=== PATIENT | female | born 2000 | race Asian ===

== ENCOUNTER 2022-06-14 14:59 | Emergency (ER) | payer OTHER, SELFPAY ==
[2022-06-14 15:05] VITALS: BP 118/59; PULSE 70; RESP 15; TEMP 36.6; O2SAT 100; BMI 16.8
[2022-06-14] MEDS: ONDANSETRON 4 MG/2 ML INJ IV (15:23)
[2022-06-14 15:28] LABS: Add Manual Diff / Slide Review NO; Basophils Absolute Auto 0 /uL (0-100); Basophils Percent Auto 0.6 % (0-2); Eosinophils Absolute Auto 200 /uL (0-450); Eosinophils Percent Auto 2.7 % (2-4); Hematocrit 41.4 % (36-46); Hemoglobin 13.7 g/dL (12.0-16.0); Lymphocytes Absolute Auto 2100 /uL (1100-4500); Lymphocytes Percent Auto 33.8 % (25-40); Mean Corpuscular Hemoglobin 29.6 PG (26-34); Mean Corpuscular Volume 89.9 fL (80-100); Monocytes Absolute Auto 400 /uL (0-900); Monocytes Percent Auto 6.3 % (3-14); Neutrophils Absolute Auto 3600 /uL (1500-7000); Neutrophils Percent Auto 56.6 % (50-75); Platelet Count 278 X10^3/uL (150-400); Red Blood Cell Count 4.61 X10^6/uL (4.0-5.2); White Blood Cell Count 6.3 X10^3/uL (4.5-11.0)
--- NOTE | 2022-06-14 15:29 | ED.ABDPAIN ---
HPI - Abdominal Pain <NEREYDA Barrow - Last Filed: 06/14/22 16:20> General Chief Complaint: Abdominal Pain Stated Complaint: Vomiting bile, abd pain Time Seen by Provider: 06/14/22 15:15 Source: patient Mode of arrival: Ambulatory History of Present Illness HPI narrative: This is a 21-year-old female who presents to the emergency department complaining of nausea and vomiting x1 today when she got to work. She endorses that she just started treatment for chlamydia yesterday, states that she is had a total of 3 doses. Denies urinary frequency or urgency, denies fever chills, denies any stool changes, states it has been approximately 2-3 days and she is had a bowel movement. Endorses periumbilical pain, states that her last menses was approximately 1 month ago. Denies chance of . States that she is on doxycycline. Related Data Previous Rx's Medication Instructions Recorded metronidazole 500 mg tablet 500 mg PO BID 7 days #14 tabs 06/14/22 ondansetron 4 mg disintegrating 4 mg PO Q8H PRN nausea and 06/14/22 tablet vomiting #10 tabs Allergies Allergy/AdvReac Type Severity Reaction Status Date / Time No Known Drug Allergies Allergy Verified 06/14/22 15:13 Review of Systems <NEREYDA Barrow - Last Filed: 06/14/22 16:20> Review of Systems ROS Unobtainable: All systems reviewed & are unremarkable except as noted in HPI and below Patient History <NEREYDA Barrow - Last Filed: 06/14/22 16:20> Social History Smoking Status: Unknown if ever smoked Smoking Status: Unknown if ever smoked alcohol intake frequency: holidays/special occasions only Substance Use Type: does not use Exam <NEREYDA Barrow - Last Filed: 06/14/22 16:20> Narrative Exam Narrative: Reviewed vitals signs and nursing notes. General: cooperative, in no acute distress, well groomed HEENT: symmetrical facial expressions, moist mucous membranes, neck is supple CV: regular rate and rhythm, warm extremities Respiratory: Without abnormal breath sounds, normal work of breathing, without tachypnea, hypoxia. GI: abdomen soft, nontender to palpation in all quadrants, nondistended, without masses, rebound tenderness or CVA tenderness bilaterally. MSK: moves all extremities, neurovascularly intact, no weakness, normal tone Skin: brisk capillary refill, without rash or wound Neuro: normal speech and cognition, A&O x3, ambulatory, clear speech Initial Vital Signs Initial Vital Signs: Vital Signs Temperature 97.8 F 06/14/22 15:05 Pulse Rate 70 06/14/22 15:05 Respiratory Rate 15 06/14/22 15:05 Blood Pressure 118/59 L 06/14/22 15:05 Pulse Oximetry 100 06/14/22 15:05 Oxygen Delivery Method Room Air 06/14/22 15:05 <Zaheer Faria DO - Last Filed: 06/14/22 16:37> Initial Vital Signs Initial Vital Signs: Vital Signs Temperature 97.8 F 06/14/22 15:05 Pulse Rate 70 06/14/22 15:05 Respiratory Rate 15 06/14/22 15:05 Blood Pressure 118/59 L 06/14/22 15:05 Pulse Oximetry 100 06/14/22 15:05 Oxygen Delivery Method Room Air 06/14/22 15:05 Course <NEREYDA Barrow - Last Filed: 06/14/22 16:20> Orders Ordered: ED Orders 06/14/22 15:15 Complete Blood Count AUTO DIFF Stat Comprehensive Metabolic Panel Stat HCG Quantitative /Beta subunit Stat Lipase Stat 06/14/22 15:25 Chlamydia Gonorrhea PCR -URINE Stat Urine Microscopic Stat Wet Prep Tric BV Lida Stat Ondansetron HCl (Ondansetron 4 Mg/2 Ml Inj) 4 mg IV NOW PRN PRN Reason: Nausea And Vomiting Last Admin: 06/14/22 15:23 Dose: 4 mg Documented By: ROBSON Discontinued Medications Ketorolac Tromethamine (Ketorolac 30 Mg/Ml Vial) 15 mg IV NOW ONE Stop: 06/14/22 16:00 Last Admin: 06/14/22 16:05 Dose: 15 mg Documented By: KAMRON Metronidazole (Metronidazole 500 Mg Tablet) 500 mg PO NOW ONE Stop: 06/14/22 16:00 Last Admin: 06/14/22 16:05 Dose: 500 mg Documented By: KAMRON Vital Signs Vital signs: Vital Signs - 8 hr 06/14/22 15:05 Temperature 97.8 F Pulse Rate 70 Respiratory Rate 15 Blood Pressure 118/59 L Pulse Oximetry 100 Oxygen Delivery Method Room Air <Zaheer Faria DO - Last Filed: 06/14/22 16:37> Orders Ordered: ED Orders 06/14/22 15:15 Complete Blood Count AUTO DIFF Stat Comprehensive Metabolic Panel Stat HCG Quantitative /Beta subunit Stat Lipase Stat 06/14/22 15:25 Chlamydia Gonorrhea PCR -URINE Stat Urine Microscopic Stat Wet Prep Tric BV L[place] Stat Ondansetron HCl (Ondansetron 4 Mg/2 Ml Inj) 4 mg IV NOW PRN PRN Reason: Nausea And Vomiting Last Admin: 06/14/22 15:23 Dose: 4 mg Documented By: ROBSON Discontinued Medications Ketorolac Tromethamine (Ketorolac 30 Mg/Ml Vial) 15 mg IV NOW ONE Stop: 06/14/22 16:00 Last Admin: 06/14/22 16:05 Dose: 15 mg Documented By: KAMRON Metronidazole (Metronidazole 500 Mg Tablet) 500 mg PO NOW ONE Stop: 06/14/22 16:00 Last Admin: 06/14/22 16:05 Dose: 500 mg Documented By: KAMRON Vital Signs Vital signs: Vital Signs - 8 hr 06/14/22 15:05 Temperature 97.8 F Pulse Rate 70 Respiratory Rate 15 Blood Pressure 118/59 L Pulse Oximetry 100 Oxygen Delivery Method Room Air MDM - Abdominal Pain <NEREYDA Barrow - Last Filed: 06/14/22 16:20> Lab Data 06/14/22 15:15 06/14/22 15:15 Labs: Lab Results 06/14/22 06/14/22 06/14/22 Range/Units 15:15 15:15 15:15 WBC 6.3 (4.5-11.0) X10^3/uL RBC 4.61 (4.0-5.2) X10^6/uL Hgb 13.7 (12.0-16.0) g/dL Hct 41.4 (36-46) % MCV 89.9 (80-100) fL MCH 29.6 (26-34) PG MCHC 33.0 (30-36) % RDW 14.0 (11.6-14.8) % Plt Count 278 (150-400) X10^3/uL Neut % (Auto) 56.6 (50-75) % Lymph % (Auto) 33.8 (25-40) % [place] % (Auto) 6.3 (3-14) % Eos % (Auto) 2.7 (2-4) % Baso % (Auto) 0.6 (0-2) % Neut # (Auto) 3600 (2067-1492) /uL Lymph # (Auto) 2100 (0966-6176) /uL [place] # (Auto) 400 (0-900) /uL Eos # (Auto) 200 (0-450) /uL Baso # (Auto) 0 (0-100) /uL Sodium 139 (137-145) mmol/L Potassium 3.9 (3.4-5.1) mmol/L Chloride 102 (98-107) mmol/L Carbon Dioxide 27 (22-32) mmol/L BUN 14 (7-17) mg/dL Creatinine 0.65 (0.52-1.04) mg/dL Estimated GFR > 60 (>60) mL/min BUN/Creatinine Ratio 21.5 (6-22) Glucose 76 (70-100) mg/dL Calcium 9.2 (8.4-10.2) mg/dL Total Bilirubin 0.6 (0.2-1.3) mg/dL AST 27 (14-36) IU/L ALT 14 (<35) IU/L Alkaline Phosphatase 46 (38-126) U/L Total Protein 8.5 H (6.3-8.2) g/dL Albumin 4.8 (3.5-5.0) g/dL Globulin 3.7 (1.7-4.1) g/dL Albumin/Globulin Ratio 1.3 (1.0-2.8) Lipase 185 (23-300) U/L HCG, Quant < 2.4 mIU/mL Urine RBC (0-5/HPF) Urine WBC (0-5/HPF) Urine Bacteria (None) Ur Culture Indicated? Micro UA Comment 06/14/22 Range/Units 15:25 WBC (4.5-11.0) X10^3/uL RBC (4.0-5.2) X10^6/uL Hgb (12.0-16.0) g/dL Hct (36-46) % MCV (80-100) fL MCH (26-34) PG MCHC (30-36) % RDW (11.6-14.8) % Plt Count (150-400) X10^3/uL Neut % (Auto) (50-75) % Lymph % (Auto) (25-40) % [place] % (Auto) (3-14) % Eos % (Auto) (2-4) % Baso % (Auto) (0-2) % Neut # (Auto) (5344-0902) /uL Lymph # (Auto) (2430-4652) /uL [place] # (Auto) (0-900) /uL Eos # (Auto) (0-450) /uL Baso # (Auto) (0-100) /uL Sodium (137-145) mmol/L Potassium (3.4-5.1) mmol/L Chloride (98-107) mmol/L Carbon Dioxide (22-32) mmol/L BUN (7-17) mg/dL Creatinine (0.52-1.04) mg/dL Estimated GFR (>60) mL/min BUN/Creatinine Ratio (6-22) Glucose (70-100) mg/dL Calcium (8.4-10.2) mg/dL Total Bilirubin (0.2-1.3) mg/dL AST (14-36) IU/L ALT (<35) IU/L Alkaline Phosphatase (38-126) U/L Total Protein (6.3-8.2) g/dL Albumin (3.5-5.0) g/dL Globulin (1.7-4.1) g/dL Albumin/Globulin Ratio (1.0-2.8) Lipase (23-300) U/L HCG, Quant mIU/mL Urine RBC None seen (0-5/HPF) Urine WBC None seen (0-5/HPF) Urine Bacteria None seen (None) Ur Culture Indicated? Cult not indicated Micro UA Comment Microscopic normal Point of care testing: Point of Care Testing Test Results Negative Urine Dip Bedside Urine Glucose Negative Bedside Urine Bilirubin - Negative Bedside Urine Ketone - Negative Urine Specific Mather 1.010 Bedside Urine Occult Blood - Negative Bedside Urine pH 6.0 Bedside Urine Protein - Negative Bedside Urine Urobilinogen - Negative Bedside Urine Nitrite - Negative Bedside Urine Leukocytes - Negative Esterase MDM Narrative Medical decision making narrative: Chief Complaint: Vomiting with nausea Independent historian: Patient Differential diagnoses include but are not limited to: Acute viral process, gastritis, gastric ulcer, biliary disease, gastroenteritis, GERD, bowel obstruction, perforated viscus, appendicitis, colitis, diverticulitis, IBD/IBS, intestinal ischemia, obstructive uropathy, acute cystitis, pyelonephritis, ovarian cyst, ectopic , ovarian mass/cyst, torsion, PID Doubt atypical ACS. No peritoneal signs on abdominal exam. Patient remains p.o. tolerant. Serial abdominal exam without increase in abdominal pain. Extensive conversation about ER return precautions and need for close follow-up. I have independently reviewed the patient's vital signs and nursing notes as well as prior records if available. Pertinent lab findings reviewed: Positive for WBCs, CBC and CMP are unremarkable, hCG is negative, UA is negative for infection, gonorrhea and chlamydia are still pending, patient's chlamydia test was positive yesterday. Patient received Zofran, Toradol, and Flagyl in the emergency department, states that she feels better. She is p.o. tolerant after Zofran and understands that she will start this new antibiotic, avoid alcohol with it, follow-up with her primary as needed, and rest for the next few days. The respiratory panel was never obtained and will be discontinued. Patient is nontoxic appearing, with stable vital signs, is p.o. tolerant at this time. Social considerations that may affect disposition: none Questions are addressed and there is agreement with the plan and for follow-up. Patient is appropriate for outpatient management. MIPS: This encounter doesn't have any diagnosis' associated with MIPS criteria. <Zaheer Faria, DO - Last Filed: 06/14/22 16:37> Lab Data Labs: Lab Results 06/14/22 06/14/22 06/14/22 Range/Units 15:15 15:15 15:15 WBC 6.3 (4.5-11.0) X10^3/uL RBC 4.61 (4.0-5.2) X10^6/uL Hgb 13.7 (12.0-16.0) g/dL Hct 41.4 (36-46) % MCV 89.9 (80-100) fL MCH 29.6 (26-34) PG MCHC 33.0 (30-36) % RDW 14.0 (11.6-14.8) % Plt Count 278 (150-400) X10^3/uL Neut % (Auto) 56.6 (50-75) % Lymph % (Auto) 33.8 (25-40) % [place] % (Auto) 6.3 (3-14) % Eos % (Auto) 2.7 (2-4) % Baso % (Auto) 0.6 (0-2) % Neut # (Auto) 3600 (4520-9068) /uL Lymph # (Auto) 2100 (9854-1960) /uL [place] # (Auto) 400 (0-900) /uL Eos # (Auto) 200 (0-450) /uL Baso # (Auto) 0 (0-100) /uL Sodium 139 (137-145) mmol/L Potassium 3.9 (3.4-5.1) mmol/L Chloride 102 (98-107) mmol/L Carbon Dioxide 27 (22-32) mmol/L BUN 14 (7-17) mg/dL Creatinine 0.65 (0.52-1.04) mg/dL Estimated GFR > 60 (>60) mL/min BUN/Creatinine Ratio 21.5 (6-22) Glucose 76 (70-100) mg/dL Calcium 9.2 (8.4-10.2) mg/dL Total Bilirubin 0.6 (0.2-1.3) mg/dL AST 27 (14-36) IU/L ALT 14 (<35) IU/L Alkaline Phosphatase 46 (38-126) U/L Total Protein 8.5 H (6.3-8.2) g/dL Albumin 4.8 (3.5-5.0) g/dL Globulin 3.7 (1.7-4.1) g/dL Albumin/Globulin Ratio 1.3 (1.0-2.8) Lipase 185 (23-300) U/L HCG, Quant < 2.4 mIU/mL Urine RBC (0-5/HPF) Urine WBC (0-5/HPF) Urine Bacteria (None) Ur Culture Indicated? Micro UA Comment 06/14/22 Range/Units 15:25 WBC (4.5-11.0) X10^3/uL RBC (4.0-5.2) X10^6/uL Hgb (12.0-16.0) g/dL Hct (36-46) % MCV (80-100) fL MCH (26-34) PG MCHC (30-36) % RDW (11.6-14.8) % Plt Count (150-400) X10^3/uL Neut % (Auto) (50-75) % Lymph % (Auto) (25-40) % [place] % (Auto) (3-14) % Eos % (Auto) (2-4) % Baso % (Auto) (0-2) % Neut # (Auto) (0106-4940) /uL Lymph # (Auto) (6844-4083) /uL [place] # (Auto) (0-900) /uL Eos # (Auto) (0-450) /uL Baso # (Auto) (0-100) /uL Sodium (137-145) mmol/L Potassium (3.4-5.1) mmol/L Chloride (98-107) mmol/L Carbon Dioxide (22-32) mmol/L BUN (7-17) mg/dL Creatinine (0.52-1.04) mg/dL Estimated GFR (>60) mL/min BUN/Creatinine Ratio (6-22) Glucose (70-100) mg/dL Calcium (8.4-10.2) mg/dL Total Bilirubin (0.2-1.3) mg/dL AST (14-36) IU/L ALT (<35) IU/L Alkaline Phosphatase (38-126) U/L Total Protein (6.3-8.2) g/dL Albumin (3.5-5.0) g/dL Globulin (1.7-4.1) g/dL Albumin/Globulin Ratio (1.0-2.8) Lipase (23-300) U/L HCG, Quant mIU/mL Urine RBC None seen (0-5/HPF) Urine WBC None seen (0-5/HPF) Urine Bacteria None seen (None) Ur Culture Indicated? Cult not indicated Micro UA Comment Microscopic normal Point of care testing: Point of Care Testing Test Results Negative Urine Dip Bedside Urine Glucose Negative Bedside Urine Bilirubin - Negative Bedside Urine Ketone - Negative Urine Specific [place] 1.010 Bedside Urine Occult Blood - Negative Bedside Urine pH 6.0 Bedside Urine Protein - Negative Bedside Urine Urobilinogen - Negative Bedside Urine Nitrite - Negative Bedside Urine Leukocytes - Negative Esterase Discharge Plan Departure Patient Disposition: Home Clinical Impression: Chlamydia infection Vomiting Qualifiers: Vomiting type: unspecified Nausea presence: with nausea Qualified Code(s): R11.2 - Nausea with vomiting, unspecified Instructions: DI for Pelvic Inflammatory Disease (PID), Nausea and Vomiting-Adult Activity Restrictions/Additional Instructions: *You have been diagnosed with vomiting, this is likely related to the chlamydia infection. I have given you another antibiotic to take for the next 7 days. Please take all medications with food and water, continue on your doxycycline and take Flagyl as well for the next 7 days. Use Zofran every 8 hours as needed for nausea. We will call you if the COVID test is positive, hopefully this helps in you start feeling better soon. Please avoid alcohol while taking this medication can cause worsening nausea and vomiting. Please drink plenty of fluids, will help you feel better, take Tylenol and or ibuprofen as needed for your symptoms. *What to do: *Please continue to take your regular medications as directed. [x ] New medication prescriptions sent to your pharmacy: [ [facility]] [ ] New medication written as a paper prescription [ ] No new medications given *Please follow up with your primary care provider in 2-3 days, call for an appointment. Let them know you were seen in the Emergency Department and that we asked that you be seen for follow-up. We will electronically transmit a record of today's note if your PCP is in our system *If you do not have a primary care provider please contact [phone] to establish care with one of the [facility] primary care providers. *Return to Emergency Department if you should have any new, worsening, or concerning symptoms, such as [fever greater than 101F, chills, worsening pain, persistent vomiting or other bothersome symptoms]. Prescriptions: New metronidazole 500 mg tablet 500 mg PO BID 7 Days Qty: 14 0RF ondansetron 4 mg tablet,disintegrating 4 mg PO Q8H PRN (Reason: nausea and vomiting) Qty: 10 0RF Referrals: Provider,Esequiel CHRISTIE [Primary Care Provider] - Stand Alone Forms: Patient Portal/API <Zaheer Faria, DO - Last Filed: 06/14/22 16:37> [facility] ED Attending Cosignature Attestation: Dr Faria Co-Sign Statement: I was available for consultation during this patient's emergency department visit. This chart is signed by myself for administrative purposes only. I did not have direct contact with this patient during this visit. They were seen independently by the APC.
[2022-06-14 15:36] LABS: Bacteria Urine None Seen; Culture Indicated Urine Cult Not Indicated; RBC Urine None Seen (0-5/HPF); Urine Comments Microscopic Normal; WBC Urine None Seen (0-5/HPF)
[2022-06-14 15:43] LABS: Alanine Aminotransferase 14 IU/L (<35); Albumin 4.8 g/dL (3.5-5.0); Albumin Globulin Ratio 1.3 (1.0-2.8); Alkaline Phosphatase 46 U/L (38-126); Aspartate Aminotransferase 27 IU/L (14-36); BUN Creatinine Ratio 21.5 (6-22); Bilirubin Total 0.6 mg/dL (0.2-1.3); Blood Urea Nitrogen 14 mg/dL (7-17); Calcium 9.2 mg/dL (8.4-10.2); Carbon Dioxide 27 mmol/L (22-32); Chloride 102 mmol/L (98-107); Estimated Glomerular Filt Rate > 60 mL/min (>60); Globulin 3.7 g/dL (1.7-4.1); Glucose 76 mg/dL (70-100); HEMOLYSIS < 15 (0-50); Lipase 185 U/L (23-300); Potassium 3.9 mmol/L (3.4-5.1); Sodium 139 mmol/L (137-145); Total Protein 8.5 g/dL (6.3-8.2)
[2022-06-14 15:59] LABS: HCG Quantitative /Beta subunit < 2.4 mIU/mL
[2022-06-14] MEDS: metroNIDAZOLE 500 MG TABLET PO (16:05)
[2022-06-14] MEDS: KETOROLAC 30 MG/ML VIAL 15 MG IV (16:05)
[2022-06-14 16:45] VITALS: BP 92/61; PULSE 61; O2SAT 100
[2022-06-14 16:59] LABS: Urine N gonorrhoeae NOT DETECTED
[2022-06-14 17:14] LABS: Urine Chlamydia NOT DETECTED
== END 2022-06-14 16:48 | disposition home or self-care (01) ==
PROVIDERS: Emergency Medicine; Emergency Provider Nurse Practitioner Critical Care Medicine
DX: R11.2 Nausea with vomiting, unspecified (principal); A74.9 Chlamydial infection, unspecified
CPT/HCPCS: 80053; 81003; 81015; 81025; 83690; 84702; 85025; 87210; 87491; 87591; 96374; 96375; 99284; J1885; J2405

== ENCOUNTER 2022-10-05 20:02 | Emergency (ER) | payer OTHER, SELFPAY ==
[2022-10-05 20:17] VITALS: BP 125/96; PULSE 104; RESP 16; TEMP 38; O2SAT 100; BMI 17.7
[2022-10-05 21:23] LABS: Add Manual Diff / Slide Review NO; Basophils Absolute Auto 100 /uL (0-100); Basophils Percent Auto 1.2 % (0-2); Eosinophils Absolute Auto 300 /uL (0-450); Hematocrit 39.3 % (36-46); Hemoglobin 13.3 g/dL (12.0-16.0); Lymphocytes Absolute Auto 2300 /uL (1100-4500); Lymphocytes Percent Auto 35.5 % (25-40); Mean Corpuscular HGB Conc 33.9 % (30-36); Mean Corpuscular Hemoglobin 30.6 PG (26-34); Mean Corpuscular Volume 90.5 fL (80-100); Monocytes Absolute Auto 600 /uL (0-900); Monocytes Percent Auto 9.3 % (3-14); Neutrophils Absolute Auto 3100 /uL (1500-7000); Platelet Count 299 X10^3/uL (150-400); Red Blood Cell Count 4.35 X10^6/uL (4.0-5.2); Red Cell Distribution Width 13.5 % (11.6-14.8); White Blood Cell Count 6.4 X10^3/uL (4.5-11.0)
[2022-10-05 21:36] LABS: Alanine Aminotransferase 16 IU/L (<35); Albumin 4.6 g/dL (3.5-5.0); Albumin Globulin Ratio 1.3 (1.0-2.8); Alkaline Phosphatase 41 U/L (38-126); Aspartate Aminotransferase 25 IU/L (14-36); BUN Creatinine Ratio 16.7 (6-22); Bilirubin Total 0.5 mg/dL (0.2-1.3); Blood Urea Nitrogen 12 mg/dL (7-17); Carbon Dioxide 28 mmol/L (22-32); Chloride 102 mmol/L (98-107); Estimated Glomerular Filt Rate > 60 mL/min (>60); Globulin 3.5 g/dL (1.7-4.1); Glucose 79 mg/dL (70-100); HEMOLYSIS < 15 (0-50); Lipase 184 U/L (23-300); Potassium 3.4 mmol/L (3.4-5.1); Sodium 137 mmol/L (137-145); Total Protein 8.1 g/dL (6.3-8.2)
[2022-10-05 21:49] VITALS: BP 128/90; PULSE 86; RESP 18; TEMP 37.4; O2SAT 98
--- NOTE | 2022-10-05 23:03 | DI.CT.S_ITS ---
PROCEDURE: CT KIDNEY URETER BLADDER (KUB) INDICATIONS: Hematuria/abdominal pain TECHNIQUE: Axial sections were acquired from the lung bases to the pubic symphysis. Coronal and sagittal reformats were performed. For radiation dose reduction, the following was used: automated exposure control, adjustment of mA and/or kV according to patient size. COMPARISON: None. FINDINGS: Image quality: Excellent. Lung bases: Unremarkable. Heart: No significant findings. URINARY: Right Kidney: No stones or hydronephrosis. Right Ureter: No hydroureter. Left Kidney: No stones or hydronephrosis. Left Ureter: No hydroureter. Bladder: Normal wall thickness. No stones. ABDOMEN: Liver: Unremarkable. Gallbladder: Unremarkable. Biliary ducts: Unremarkable. Pancreas: Unremarkable. Spleen: Unremarkable. Adrenal Glands: Unremarkable. Stomach and Bowel: Stomach, small bowel loops, and colon are unremarkable. Peritoneum: No abnormal intraperitoneal fluid. No free air. Ventral Wall: No hernia. Abdominal Nodes: No enlarged retroperitoneal or mesenteric lymph nodes. Vessels: Aorta and inferior vena cava are normal in size. PELVIS: Pelvic Organs: Unremarkable. Pelvic Nodes: Unremarkable. Miscellaneous: No inguinal hernias are seen. Bones: Unremarkable. IMPRESSION: No hydronephrosis or nephrolithiasis is found. Etiology current reported hematuria and abdominal pain is not identified. Dictated by: Osmin Nunez M.D. on 10/05/2022 at 23:46 Approved by: Osmin Nunez M.D. on 10/05/2022 at 23:48
--- NOTE | 2022-10-05 23:06 | ED_ITS ---
HPI - Female Genitourinary General Chief complaint: Urogenital-Female Stated complaint: ABD PAIN/BLOOD IN URINE Time Seen by Provider: 10/05/22 22:01 Source: patient Mode of arrival: Ambulatory History of Present Illness HPI Narrative: Patient here for complaints 1 week of off and on suprapubic pain with hematuria. This started 1 week ago with hematuria and has had off and on suprapubic pain. No flank pain. No increased urination. No dysuria or frequency. No fever chills. Patient states has history of UTI in the past but does not feel the same. Denies any vaginal bleeding. Patient denies any prior history of kidney stones. Denies any pain at this time. No nausea or vomiting. Related Data Previous Rx's Medication Instructions Recorded ondansetron 4 mg disintegrating 4 mg PO Q8H PRN nausea and 06/14/22 tablet vomiting #10 tabs Allergies Allergy/AdvReac Type Severity Reaction Status Date / Time No Known Drug Allergies Allergy Verified 06/14/22 15:13 Review of Systems Review of Systems Narrative: GENERAL: negative chills, fatigue, malaise, fever, sweats. HEENT: negative sinus pain, ear pain, sore throat RESPIRATORY: negative dyspnea, cough CARDIOVASCULAR: negative chest pain, palpitations GASTROINTESTINAL: negative nausea, vomiting, positive abdominal pain : negative dysuria, frequency, positive hematuria MUSCULOSKELETAL: negative muscle or bony pain SKIN: negative rash, skin lesions NEUROLOGIC: negative weakness, numbness ROS Unobtainable: All systems reviewed & are unremarkable except as noted in HPI and below Patient History alcohol intake frequency: holidays/special occasions only Substance Use Type: does not use Exam Narrative Exam Narrative: GENERAL: in no distress, not toxic not dyspneic HEAD: Normocephalic. EYES: Pupils equal round ENT: Mucous membranes moist. NECK: Trachea midline. CARDIOVASCULAR: Regular rate and rhythm without murmurs RESPIRATORY: Clear to auscultation. Breath sounds equal bilaterally. No wheezes, rales, or rhonchi. GASTROINTESTINAL: Abdomen soft, non-tender abdomen soft flat nontender no suprapubic tenderness. No McBurney point tenderness. No pain out of proportion to exam. Bowel sounds are present. No CVA tenderness EXTREMITIES: No gross deformities. BACK: No flank tenderness. NEURO: AOx4. SKIN: Warm and dry PSYCH: Not anxious, is cooperative Initial Vital Signs Initial Vital Signs: Vital Signs Temperature 100.4 F H 10/05/22 20:17 Pulse Rate 104 H 10/05/22 20:17 Respiratory Rate 16 10/05/22 20:17 Blood Pressure 125/96 H 10/05/22 20:17 Pulse Oximetry 100 10/05/22 20:17 Oxygen Delivery Method Room Air 10/05/22 20:17 Course Orders Ordered: ED Orders 10/05/22 21:10 Complete Blood Count AUTO DIFF Stat Comprehensive Metabolic Panel Stat Lipase Stat 10/05/22 23:03 CT kidney ureter bladder (KUB) Stat Discontinued Medications Ondansetron HCl (Ondansetron 4 Mg Odt) 4 mg PO NOW PRN PRN Reason: Nausea And Vomiting Ondansetron HCl (Ondansetron 4 Mg/2 Ml Inj) 4 mg IV NOW PRN PRN Reason: Nausea And Vomiting Vital Signs Vital signs: Vital Signs - 8 hr 10/05/22 21:49 10/06/22 00:03 Temperature 99.3 F Pulse Rate 86 66 Respiratory Rate 18 16 Blood Pressure 128/90 102/72 Pulse Oximetry 98 98 Oxygen Delivery Method Room Air Room Air MDM - Female Genitourinary Lab Data 10/05/22 21:10 10/05/22 21:10 Labs: Lab Results 10/05/22 10/05/22 Range/Units 21:10 21:10 WBC 6.4 (4.5-11.0) X10^3/uL RBC 4.35 (4.0-5.2) X10^6/uL Hgb 13.3 (12.0-16.0) g/dL Hct 39.3 (36-46) % MCV 90.5 (80-100) fL MCH 30.6 (26-34) PG MCHC 33.9 (30-36) % RDW 13.5 (11.6-14.8) % Plt Count 299 (150-400) X10^3/uL Neut % (Auto) 49.0 L (50-75) % Lymph % (Auto) 35.5 (25-40) % Gilliam % (Auto) 9.3 (3-14) % Eos % (Auto) 5.0 H (2-4) % Baso % (Auto) 1.2 (0-2) % Neut # (Auto) 3100 (7862-4043) /uL Lymph # (Auto) 2300 (0196-9800) /uL Gilliam # (Auto) 600 (0-900) /uL Eos # (Auto) 300 (0-450) /uL Baso # (Auto) 100 (0-100) /uL Sodium 137 (137-145) mmol/L Potassium 3.4 (3.4-5.1) mmol/L Chloride 102 (98-107) mmol/L Carbon Dioxide 28 (22-32) mmol/L BUN 12 (7-17) mg/dL Creatinine 0.72 (0.52-1.04) mg/dL Estimated GFR > 60 (>60) mL/min BUN/Creatinine Ratio 16.7 (6-22) Glucose 79 (70-100) mg/dL Calcium 9.0 (8.4-10.2) mg/dL Total Bilirubin 0.5 (0.2-1.3) mg/dL AST 25 (14-36) IU/L ALT 16 (<35) IU/L Alkaline Phosphatase 41 (38-126) U/L Total Protein 8.1 (6.3-8.2) g/dL Albumin 4.6 (3.5-5.0) g/dL Globulin 3.5 (1.7-4.1) g/dL Albumin/Globulin Ratio 1.3 (1.0-2.8) Lipase 184 (23-300) U/L Point of Care Testing Test Results Negative Urine Dip Bedside Urine Glucose Negative Bedside Urine Bilirubin - Negative Bedside Urine Ketone - Negative Urine Specific [place] 1.005 Bedside Urine Occult Blood - Negative Bedside Urine pH 6 Bedside Urine Protein - Negative Bedside Urine Urobilinogen - Negative Bedside Urine Nitrite - Negative Bedside Urine Leukocytes - Negative Esterase Imaging Data CT scan - abdomen/pelvis: Radiologist's Impression: [address] [address] [address] Scan Report Signed Patient: Kenya Childers MR#: [id number] : 2000 Acct:[id number] Age/Sex: 21 / F Date of Service: 10/05/22 Loc: ED Accession Number: [id number] ?? Procedure: CT kidney ureter bladder (KUB) Ordering Provider: Demarco Yadav MD PROCEDURE:? CT KIDNEY URETER BLADDER (KUB) ? INDICATIONS:? Hematuria/abdominal pain ? TECHNIQUE:? Axial sections were acquired from the lung bases to the pubic symphysis.? Coronal and sagittal reformats were performed.? For radiation dose reduction, the following was used: ?automated exposure control, adjustment of mA and/or kV according to patient size.? ? COMPARISON:? None. ? FINDINGS:? Image quality:? Excellent.? ? Lung bases:? Unremarkable.? ? Heart:? No significant findings. ? URINARY: Right Kidney: ? No stones or hydronephrosis.? Right Ureter:? No hydroureter.? ? Left Kidney: ? No stones or hydronephrosis. Left Ureter:? No hydroureter.? ? Bladder:? Normal wall thickness. No stones. ? ? ? ABDOMEN: Liver:? Unremarkable.? ? Gallbladder:? Unremarkable.? ? Biliary ducts:? Unremarkable.? ? Pancreas:? Unremarkable.? ? Spleen:? Unremarkable.? ? Adrenal Glands:? Unremarkable.? ? ? Stomach and Bowel:? Stomach, small bowel loops, and colon are unremarkable.? Peritoneum:? No abnormal intraperitoneal fluid.? No free air.? ? Ventral Wall: ? No hernia.? Abdominal Nodes:? No enlarged retroperitoneal or mesenteric lymph nodes.? Vessels:? Aorta and inferior vena cava are normal in size.? ? PELVIS: Pelvic Organs:? Unremarkable.? ? Pelvic Nodes: Unremarkable. Miscellaneous: No inguinal hernias are seen. ? ? ? Bones:? Unremarkable. ? IMPRESSION:? ? No hydronephrosis or nephrolithiasis is found.? Etiology current reported hematuria and abdominal pain is not identified. ? Dictated by: Osmin Nunez M.D. on 10/05/2022 at 23:46 ? ? Approved by: Osmin Nunez M.D. on 10/05/2022 at 23:48 ? MDM Narrative Medical decision making narrative: Patient here for complaints 1 week of off and on suprapubic pain with hematuria. This started 1 week ago with hematuria and has had off and on suprapubic pain. No flank pain. No increased urination. No dysuria or frequency. No fever chills. Patient states has history of UTI in the past but does not feel the same. Denies any vaginal bleeding. Patient denies any prior history of kidney stones. Denies any pain at this time. No nausea or vomiting. After history and exam CBC CMP urinalysis test CT abdomen pelvis MDM CC: Hematuria abdominal pain Complicating co-morbidities: None Data collected from: Patient Medical records reviewed: No recent visit for this complaint Differential considered: Includes but not limited to pyelonephritis cystitis UTI kidney stone Exam documented above, pertinent findings include: Nontender abdomen Lab Test results independently reviewed as above. Pertinent findings: WBC 6.4 hemoglobin 13.3 BUN 12 creatinine 0.72 GFR greater than 60 negative test no bacteria, negative blood negative nitrate negative leuk esterase Imaging studies independently reviewed: CT KUB no acute finding Consultations: None indicated at this time Treatments: Zofran was given with triage, however patient denies any nausea with her symptoms Re-evaluations: 12:00 a.m.. Patient feeling much better. Resting comfortably. No abdominal pain no hematuria. No distress. Reviewed results with her. Return precautions reviewed with her. At this time laboratory studies and imaging are reassuring. Referral for Urology provided. She agrees with treatment plan and discharge home. She needs a work note for tomorrow. Discussion: Appropriate for discharge home. Exam and laboratory studies and imaging are reassuring. Return precautions reviewed with her. Urology referral given. Pain-free symptom free at time of discharge. Work note provided. Return precautions reviewed with her. She desires discharge home. Diagnosis: Hematuria abdominal pain Discharge Plan Departure Patient Disposition: Home Clinical Impression: Hematuria, Abdominal pain Instructions: DI for Abdominal Pain-Adult, DI for Hematuria Activity Restrictions/Additional Instructions: See family doctor this week for re-evaluation. Please call provided urologist, Dr. Diggs, tomorrow for re-evaluation of your hematuria/blood in the urine. Return if worse if any questions or concerns. May continue Tylenol or ibuprofen for pain. At this time laboratory studies and CT scan imaging are reassuring. No surgery or antibiotics are indicated this time. Prescriptions: No Action ondansetron 4 mg tablet,disintegrating 4 mg PO Q8H PRN (Reason: nausea and vomiting) Qty: 10 0RF Referrals: Provider,Esequiel CHRISTIE [Primary Care Provider] - Demarco Diggs MD [Physician] - Stand Alone Forms: Patient Portal/API, Work Release Note
[2022-10-06 00:03] VITALS: BP 102/72; PULSE 66; RESP 16; O2SAT 98
== END 2022-10-06 00:12 | disposition home or self-care (01) ==
PROVIDERS: Emergency Provider Emergency Medicine
DX: R31.9 Hematuria, unspecified (principal); R10.30 Lower abdominal pain, unspecified
CPT/HCPCS: 36415; 74176; 80053; 81003; 81025; 83690; 85025; 99284

== ENCOUNTER 2022-10-17 16:34 | Emergency (ER) | payer OTHER, SELFPAY ==
[2022-10-17 16:44] VITALS: BP 99/57; PULSE 82; RESP 16; TEMP 36.8; O2SAT 99; BMI 17.7
--- NOTE | 2022-10-17 16:52 | DI.RAD.S_ITS ---
PROCEDURE: XR CHEST 2V INDICATIONS: leftside chest pain/worse with breathing TECHNIQUE: 2 views of the chest were acquired. COMPARISON: None. FINDINGS: Surgical changes and devices: None. Lungs and pleura: Lungs are clear. No pleural effusions or pneumothorax. Mediastinum: Mediastinal contours are normal. Heart size is normal. Bones and chest wall: No suspicious bony abnormalities. Soft tissues appear unremarkable. IMPRESSION: No acute pulmonary process. Dictated by: Tati Tapia M.D. on 10/17/2022 at 17:19 Approved by: Tati Tapia M.D. on 10/17/2022 at 17:19
== END 2022-10-17 18:08 | disposition left against medical advice (07) ==
PROVIDERS: Emergency Provider Emergency Medicine
DX: R07.9 Chest pain, unspecified (principal)
CPT/HCPCS: 71046; 81003; 81025; 99282

== ENCOUNTER 2022-11-10 19:55 | Emergency (ER) | payer OTHER, SELFPAY | END 2022-11-10 20:25 | disposition left against medical advice (07) | PROVIDERS: Emergency Provider Emergency Medicine ==

== ENCOUNTER 2023-01-01 20:14 | Emergency (ER) | payer OTHER, SELFPAY ==
[2023-01-01 20:44] VITALS: BP 113/73; PULSE 77; RESP 16; TEMP 36.6; O2SAT 98; BMI 16.5
[2023-01-01 22:34] LABS: Add Manual Diff / Slide Review NO; Basophils Absolute Auto 0 /uL (0-100); Basophils Percent Auto 0.7 % (0-2); Eosinophils Absolute Auto 100 /uL (0-450); Eosinophils Percent Auto 2.2 % (2-4); Hematocrit 37.5 % (36-46); Hemoglobin 12.9 g/dL (12.0-16.0); Lymphocytes Absolute Auto 1900 /uL (1100-4500); Lymphocytes Percent Auto 28.4 % (25-40); Mean Corpuscular HGB Conc 34.5 % (30-36); Mean Corpuscular Hemoglobin 31.2 PG (26-34); Mean Corpuscular Volume 90.5 fL (80-100); Monocytes Absolute Auto 600 /uL (0-900); Monocytes Percent Auto 8.7 % (3-14); Neutrophils Absolute Auto 4000 /uL (1500-7000); Platelet Count 295 X10^3/uL (150-400); Red Blood Cell Count 4.14 X10^6/uL (4.0-5.2); Red Cell Distribution Width 13.4 % (11.6-14.8); White Blood Cell Count 6.7 X10^3/uL (4.5-11.0)
[2023-01-01 22:42] LABS: Acetaminophen < 10 ug/mL (10-30); Alanine Aminotransferase 14 IU/L (<35); Albumin 4.2 g/dL (3.5-5.0); Albumin Globulin Ratio 1.4 (1.0-2.8); Alkaline Phosphatase 41 U/L (38-126); Aspartate Aminotransferase 22 IU/L (14-36); BUN Creatinine Ratio 19.4 (6-22); Blood Urea Nitrogen 12 mg/dL (7-17); Calcium 9.5 mg/dL (8.4-10.2); Carbon Dioxide 25 mmol/L (22-32); Chloride 103 mmol/L (98-107); Estimated Glomerular Filt Rate > 60 mL/min (>60); Ethanol (ETOH) < 10 mg/dL; Globulin 2.9 g/dL (1.7-4.1); Glucose 103 mg/dL (70-100); HEMOLYSIS < 15 (0-50); Potassium 3.2 mmol/L (3.4-5.1); Salicylate < 1.0 mg/dL (<20); Sodium 137 mmol/L (137-145); Total Protein 7.1 g/dL (6.3-8.2)
[2023-01-01 23:14] LABS: Free T4, Direct Thyroxine 1.02 ng/dL (0.78-2.19)
[2023-01-01 23:29] LABS: Thyroid Stimulating Hormone 1.47 uIU/mL (0.47-4.68)
[2023-01-01 23:39] LABS: UR Morphine/Opiate cutoff 300 Negative (Negative); Ur Creatinine Normal (Normal); Ur Specific Gravity Normal (Normal); Urine Amphetamines Negative (Negative); Urine Barbiturates Negative (Negative); Urine Benzodiazepines Negative (Negative); Urine Cocaine Negative (Negative); Urine MDMA Negative (Negative); Urine Methadone Negative (Negative); Urine Methamphetamines Negative (Negative); Urine Oxycodone Negative (Negative); Urine Phencyclidine Negative (Negative); Urine Tetrahydrocannabinol Negative (Negative); Urine Tricyclic Antidepressant Negative (Negative); Urine pH Normal (Normal)
--- NOTE | 2023-01-02 01:45 | PC.NURSE ---
Pt sleeping. Assessment deferred.
--- NOTE | 2023-01-02 02:47 | ED.PSYCH ---
HPI - Psych <Nathalie Frost DO - Last Filed: 01/13/23 06:58> General Chief Complaint: Psychiatric Symptoms Stated Complaint: Mental health Time Seen by Provider: 01/02/23 01:43 Source: patient Mode of arrival: Ambulatory History of Present Illness HPI Narrative: Patient 22-year-old female without past medical history presenting today with suicidal ideations. She reports that she is been feeling depressed which is fairly new for her and started having some suicidal ideations. She is active lives in the [facility]. She denies any recent incident. Her family lives [place]. She is here by herself. Very vague. He wants to hurt herself by cutting but does not appear that he is actually cut herself. She reports she is under lot of stress lately. Unable to sleep. She reports not trusting herself at home. Related Data Previous Rx's Medication Instructions Recorded ondansetron 4 mg disintegrating 4 mg PO Q8H PRN nausea and 06/14/22 tablet vomiting #10 tabs Allergies Allergy/AdvReac Type Severity Reaction Status Date / Time No Known Drug Allergies Allergy Verified 06/14/22 15:13 Review of Systems <Nathalie Frost DO - Last Filed: 01/13/23 06:58> Review of Systems ROS Unobtainable: All systems reviewed & are unremarkable except as noted in HPI and below Patient History <Nathalie Frost DO - Last Filed: 01/13/23 06:58> Social History Smoking Status: Current every day smoker Smoking Status: Current every day smoker tobacco type: cigarettes and vaping alcohol intake frequency: holidays/special occasions only Substance Use Type: does not use Exam <Nathalie Frost DO - Last Filed: 01/13/23 06:58> Initial Vital Signs Initial Vital Signs: Vital Signs Temperature 97.8 F 01/01/23 20:44 Pulse Rate 77 01/01/23 20:44 Respiratory Rate 16 01/01/23 20:44 Blood Pressure 113/73 01/01/23 20:44 Pulse Oximetry 98 01/01/23 20:44 Oxygen Delivery Method Room Air 01/01/23 20:44 GENERAL: Thin 22-year-old female well-groomed CARDIOVASCULAR: peripheral pulses in tact, cap refill <2 sec RESPIRATORY: No respiratory distress, speaks in full sentences without difficulty EXTREMITIES: Normal range of motion, no clubbing or edema. Neurovascularly intact NEUROLOGICAL: Cranial nerves II through XII grossly intact. Normal gait and speech. SKIN: Warm, dry, no petechiae, no rashes or lesions. <Zaheer Faria DO - Last Filed: 01/02/23 08:16> Initial Vital Signs Initial Vital Signs: Vital Signs Temperature 97.8 F 01/01/23 20:44 Pulse Rate 77 01/01/23 20:44 Respiratory Rate 16 01/01/23 20:44 Blood Pressure 113/73 01/01/23 20:44 Pulse Oximetry 98 01/01/23 20:44 Oxygen Delivery Method Room Air 01/01/23 20:44 Course <Nathalie Frost DO - Last Filed: 01/13/23 06:58> Orders Ordered: ED Orders 01/01/23 23:32 Urine Drug Screen, Rapid Stat Vital Signs Vital signs: Vital Signs - 8 hr 01/02/23 08:02 Pulse Rate 72 Blood Pressure 111/67 Pulse Oximetry 100 <Zaheer Faria DO - Last Filed: 01/02/23 08:16> Orders Ordered: ED Orders 01/01/23 23:32 Urine Drug Screen, Rapid Stat Vital Signs Vital signs: Vital Signs - 8 hr 01/02/23 08:02 Pulse Rate 72 Blood Pressure 111/67 Pulse Oximetry 100 MDM - Psych <Nathalie Frost DO - Last Filed: 01/13/23 06:58> Lab Data 01/01/23 22:21 01/01/23 22:21 Labs: Lab Results 01/01/23 01/01/23 Range/Units 22:21 23:32 WBC 6.7 (4.5-11.0) X10^3/uL RBC 4.14 (4.0-5.2) X10^6/uL Hgb 12.9 (12.0-16.0) g/dL Hct 37.5 (36-46) % MCV 90.5 (80-100) fL MCH 31.2 (26-34) PG MCHC 34.5 (30-36) % RDW 13.4 (11.6-14.8) % Plt Count 295 (150-400) X10^3/uL Neut % (Auto) 60.0 (50-75) % Lymph % (Auto) 28.4 (25-40) % Delta % (Auto) 8.7 (3-14) % Eos % (Auto) 2.2 (2-4) % Baso % (Auto) 0.7 (0-2) % Neut # (Auto) 4000 (1055-6268) /uL Lymph # (Auto) 1900 (3552-7183) /uL Delta # (Auto) 600 (0-900) /uL Eos # (Auto) 100 (0-450) /uL Baso # (Auto) 0 (0-100) /uL Sodium 137 (137-145) mmol/L Potassium 3.2 L (3.4-5.1) mmol/L Chloride 103 (98-107) mmol/L Carbon Dioxide 25 (22-32) mmol/L BUN 12 (7-17) mg/dL Creatinine 0.62 (0.52-1.04) mg/dL Estimated GFR > 60 (>60) mL/min BUN/Creatinine Ratio 19.4 (6-22) Glucose 103 H (70-100) mg/dL Calcium 9.5 (8.4-10.2) mg/dL Total Bilirubin 1.0 (0.2-1.3) mg/dL AST 22 (14-36) IU/L ALT 14 (<35) IU/L Alkaline Phosphatase 41 (38-126) U/L Total Protein 7.1 (6.3-8.2) g/dL Albumin 4.2 (3.5-5.0) g/dL Globulin 2.9 (1.7-4.1) g/dL Albumin/Globulin Ratio 1.4 (1.0-2.8) TSH 1.47 (0.47-4.68) uIU/mL Free T4 1.02 (0.78-2.19) ng/dL Salicylates < 1.0 (<20) mg/dL U Opiates 300ng/mL cut Negative (Negative) Ur Oxycodone Screen Negative (Negative) Urine Methadone Screen Negative (Negative) Acetaminophen < 10 (10-30) ug/mL Ur Barbiturates Screen Negative (Negative) U Tricyclic Antidepress Negative (Negative) Ur Phencyclidine Scrn Negative (Negative) Ur Amphetamines Screen Negative (Negative) U Methamphetamines Scrn Negative (Negative) Ur MDMA Scrn (Ecstasy) Negative (Negative) U Benzodiazepines Scrn Negative (Negative) Urine Cocaine Screen Negative (Negative) U Marijuana (THC) Screen Negative (Negative) Ethyl Alcohol < 10 ( - 10) mg/dL Point of Care Testing Test Results Negative Urine Dip Bedside Urine Glucose Negative Bedside Urine Bilirubin - Negative Bedside Urine Ketone - Negative Urine Specific [place] 1.015 Bedside Urine Occult Blood - Negative Bedside Urine pH 6.0 Bedside Urine Protein - Negative Bedside Urine Nitrite - Negative Bedside Urine Leukocytes - Negative Esterase MDM Narrative Medical decision making narrative: Patient old female significant past medical history presenting today with depression suicidal ideation. Does not appear to have significant support. She is here voluntarily does not meet involuntary criteria. Agrees with awaiting for social work evaluation. Signed out to Dr. Faria <Zaheer Faria DO - Last Filed: 01/02/23 08:16> Lab Data Labs: Lab Results 01/01/23 01/01/23 Range/Units 22:21 23:32 WBC 6.7 (4.5-11.0) X10^3/uL RBC 4.14 (4.0-5.2) X10^6/uL Hgb 12.9 (12.0-16.0) g/dL Hct 37.5 (36-46) % MCV 90.5 (80-100) fL MCH 31.2 (26-34) PG MCHC 34.5 (30-36) % RDW 13.4 (11.6-14.8) % Plt Count 295 (150-400) X10^3/uL Neut % (Auto) 60.0 (50-75) % Lymph % (Auto) 28.4 (25-40) % Delta % (Auto) 8.7 (3-14) % Eos % (Auto) 2.2 (2-4) % Baso % (Auto) 0.7 (0-2) % Neut # (Auto) 4000 (2521-4815) /uL Lymph # (Auto) 1900 (5861-1154) /uL Delta # (Auto) 600 (0-900) /uL Eos # (Auto) 100 (0-450) /uL Baso # (Auto) 0 (0-100) /uL Sodium 137 (137-145) mmol/L Potassium 3.2 L (3.4-5.1) mmol/L Chloride 103 (98-107) mmol/L Carbon Dioxide 25 (22-32) mmol/L BUN 12 (7-17) mg/dL Creatinine 0.62 (0.52-1.04) mg/dL Estimated GFR > 60 (>60) mL/min BUN/Creatinine Ratio 19.4 (6-22) Glucose 103 H (70-100) mg/dL Calcium 9.5 (8.4-10.2) mg/dL Total Bilirubin 1.0 (0.2-1.3) mg/dL AST 22 (14-36) IU/L ALT 14 (<35) IU/L Alkaline Phosphatase 41 (38-126) U/L Total Protein 7.1 (6.3-8.2) g/dL Albumin 4.2 (3.5-5.0) g/dL Globulin 2.9 (1.7-4.1) g/dL Albumin/Globulin Ratio 1.4 (1.0-2.8) TSH 1.47 (0.47-4.68) uIU/mL Free T4 1.02 (0.78-2.19) ng/dL Salicylates < 1.0 (<20) mg/dL U Opiates 300ng/mL cut Negative (Negative) Ur Oxycodone Screen Negative (Negative) Urine Methadone Screen Negative (Negative) Acetaminophen < 10 (10-30) ug/mL Ur Barbiturates Screen Negative (Negative) U Tricyclic Antidepress Negative (Negative) Ur Phencyclidine Scrn Negative (Negative) Ur Amphetamines Screen Negative (Negative) U Methamphetamines Scrn Negative (Negative) Ur MDMA Scrn (Ecstasy) Negative (Negative) U Benzodiazepines Scrn Negative (Negative) Urine Cocaine Screen Negative (Negative) U Marijuana (THC) Screen Negative (Negative) Ethyl Alcohol < 10 ( - 10) mg/dL Point of Care Testing Test Results Negative Urine Dip Bedside Urine Glucose Negative Bedside Urine Bilirubin - Negative Bedside Urine Ketone - Negative Urine Specific [place] 1.015 Bedside Urine Occult Blood - Negative Bedside Urine pH 6.0 Bedside Urine Protein - Negative Bedside Urine Nitrite - Negative Bedside Urine Leukocytes - Negative Esterase MDM Narrative Medical decision making narrative: Patient old female significant past medical history presenting today with depression suicidal ideation. Does not appear to have significant support. She is here voluntarily does not meet involuntary criteria. Agrees with awaiting for social work evaluation. Signed out to Dr. Bienvenido faria: Received turned over. Reviewed patient's history and physical exam. Few patient's workup. She is medically cleared. Patient is here voluntarily. This morning patient states she is feeling better. She is feeling depressed but is no longer suicidal. She states she does feel safe back at her [facility] [place]. She does have individuals around her. She does not want admitted to the hospital. I do not feel beats criteria for an involuntary admission. Offer to allow patient to stay here in the department in order to talk with social services manager however the patient declined. We did talk about resources that she has being active duty to include her [employer] medical and also [employer] and family Services. She stated that if she started to have thoughts again she would return to the emergency department for further evaluation. Discharge Plan Departure Patient Disposition: Home Clinical Impression: Depression Instructions: Depression Activity Restrictions/Additional Instructions: I do recommend that you contact your [employer] medical and also [employer] and family Services. There are multiple resources available for you to help with your depression. Please return to the emergency department for new or worsening symptoms. Prescriptions: No Action ondansetron 4 mg tablet,disintegrating 4 mg PO Q8H PRN (Reason: nausea and vomiting) Qty: 10 0RF Referrals: ProviderEsequiel [Primary Care Provider] - Stand Alone Forms: Patient Portal/API
[2023-01-02 07:15] VITALS: BP 116/62; PULSE 70; RESP 18; O2SAT 98
--- NOTE | 2023-01-02 07:30 | PC.NURSE ---
Pt states she is not SI at this time, states yesterday she was depressed. States she is depressed at baseline. She just re-enlisted in the [employer]. Pt is from [place], does not like living in the [facility]. AOx4, GCS 15.
--- NOTE | 2023-01-02 07:56 | PC.NURSE ---
0715, shift change, this RNs first interaction with patient. Patient AOx4, GCS 15. VSS.
[2023-01-02 08:02] VITALS: BP 111/67; PULSE 72; O2SAT 100
[2023-01-02 08:04] VITALS: BP 111/67; PULSE 71; O2SAT 99
[2023-01-02 08:05] VITALS: BP 114/64; PULSE 74; O2SAT 99
--- NOTE | 2023-01-02 08:28 | PC.NURSE ---
Patient sitting up in bed eating breakfast.
== END 2023-01-02 08:25 | disposition home or self-care (01) ==
PROVIDERS: Emergency Medicine; Emergency Provider Emergency Medicine
DX: F32.A Depression, unspecified (principal)
CPT/HCPCS: 36415; 80053; 80305; 80320; 80329; 81003; 81025; 84439; 84443; 85025; 99284; G0480